=== PATIENT | female | born 1995 | race Caucasian/White ===

== ENCOUNTER 2022-06-13 07:19 | Outpatient (REF) | payer MEDICAID, SELFPAY | END 2022-06-13 07:20 | disposition home or self-care (01) | LOC: HO.HOSX 07:19 | PROVIDERS: Visit Provider Physician Assistant | DX: Z13.89 Encounter for screening for other disorder (principal) ==

== ENCOUNTER 2023-07-01 18:17 | Outpatient (REF) | payer MEDICAID, SELFPAY | END 2023-07-01 18:18 | disposition home or self-care (01) | LOC: HO.HHCL 18:17 | PROVIDERS: Visit Provider Emergency Medicine | DX: J02.9 Acute pharyngitis, unspecified (principal) | CPT/HCPCS: 87070; 87147 ==

== ENCOUNTER 2023-08-24 16:23 | Outpatient (REF) | payer MEDICAID, SELFPAY ==
[2023-08-25 12:24] LABS: HIV AB/AG Nonreactive (Nonreactive); HIV Num 1 0.06 S/CO (0.00-0.99); ~HepC Num1 0.07 S/CO (0.00-0.79); ~Hepatitis C Antibody Nonreactive (Nonreactive)
[2023-08-25 14:19] LABS: CT PCR NOT DETECTED (Not Detect.); NG PCR NOT DETECTED (Not Detect.)
[2023-08-27 13:09] LABS: RPR Rapid Plasma Reagin NON-REACTIVE (NON-REACTIVE)
== END 2023-08-24 16:24 | disposition home or self-care (01) ==
LOC: HO.CHCLDS 16:23
PROVIDERS: Visit Provider Internal Medicine
DX: N30.01 Acute cystitis with hematuria (principal); Z11.3 Encounter for screening for infections with a predominantly sexual mode of transmission
CPT/HCPCS: 0353U; 86592; 86803; 87086; 87088; 87186; 87389

== ENCOUNTER 2023-09-22 11:13 | Outpatient (REF) | payer MEDICAID, SELFPAY ==
[2023-09-22 17:17] LABS: CT PCR NOT DETECTED (Not Detect.); NG PCR NOT DETECTED (Not Detect.)
== END 2023-09-22 11:14 | disposition home or self-care (01) ==
LOC: HO.CHCLNP 11:13
PROVIDERS: Visit Provider Advanced Practice Midwife
DX: Z11.3 Encounter for screening for infections with a predominantly sexual mode of transmission (principal); N93.9 Abnormal uterine and vaginal bleeding, unspecified
CPT/HCPCS: 0353U

== ENCOUNTER 2023-10-06 12:00 | Outpatient (REF) | payer MEDICAID, SELFPAY ==
[2023-10-06 19:02] LABS: CT PCR NOT DETECTED (Not Detect.); NG PCR NOT DETECTED (Not Detect.)
[2023-10-07 08:53] LABS: ~HepC Num1 0.12 S/CO (0.00-0.79); ~Hepatitis C Antibody Nonreactive (Nonreactive)
[2023-10-07 15:49] LABS: RPR Rapid Plasma Reagin NON-REACTIVE (NON-REACTIVE)
[2023-10-09 16:39] LABS: HIV RNA PCR Qn Copies Not Detected Copies/mL; HIV RNA PCR Qn Log Copies Not Detected Log cps/mL
== END 2023-10-06 12:01 | disposition home or self-care (01) ==
LOC: HO.CHCLDS 12:00
PROVIDERS: Visit Provider Student in an Organized Health Care Education/Training Program
DX: Z11.3 Encounter for screening for infections with a predominantly sexual mode of transmission (principal); Z11.59 Encounter for screening for other viral diseases
CPT/HCPCS: 0353U; 36415; 86592; 86803; 87536; 87900

== ENCOUNTER 2023-10-28 16:10 | Outpatient (REF) | payer MEDICAID, SELFPAY ==
[2023-11-03 15:23] LABS: Immunoglobulin M 227 mg/dL (50-300)
== END 2023-10-28 16:11 | disposition home or self-care (01) ==
LOC: HO.CHCLDS 16:10
PROVIDERS: Visit Provider Family Medicine
DX: A64 Unspecified sexually transmitted disease (principal)
CPT/HCPCS: 0353U; 36415; 81513; 82784; 86695; 86696; 86780; 86803; 87086; 87340; 87389

== ENCOUNTER 2023-12-02 13:03 | Outpatient (REF) | payer MEDICAID, SELFPAY ==
[2023-12-02 14:50] LABS: Appearance Urine Turbid; Color Urine Dark Yellow; Glucose Urine UA Negative (Negative); Leukocyte Esterase Urine Negative (Negative); Nitrite Urine Negative (Negative); Specific Gravity - Urine >= 1.030 (1.005-1.025); Urine Blood Negative (Negative); Urine Ketones Trace mg/dL (Negative); Urine Protein Trace mg/dL (Neg-Trace)
[2023-12-02 14:56] LABS: Bacteria Urine 1+ (None Seen); RBC Urine 0-2 /HPF (0-2); WBC Urine 0-5 /HPF (0-5)
[2023-12-02 16:31] LABS: CT PCR NOT DETECTED (Not Detect.); NG PCR NOT DETECTED (Not Detect.)
[2023-12-03 23:04] LABS: C. trachomatis RNA TMA NOT DETECTED (NOT DETECTED); N. gonorrhoeae RNA TMA NOT DETECTED (NOT DETECTED)
== END 2023-12-02 13:04 | disposition home or self-care (01) ==
LOC: HO.CHCLNP 13:03
PROVIDERS: Visit Provider Internal Medicine
DX: R30.0 Dysuria (principal); N76.0 Acute vaginitis
CPT/HCPCS: 0353U; 81001; 81513; 87491; 87591

== ENCOUNTER 2023-12-24 09:43 | Outpatient (REF) | payer MEDICAID, SELFPAY ==
[2023-12-25 04:18] LABS: Syphilis Screen Nonreactive (Nonreactive)
[2023-12-25 04:36] LABS: HBS Num1 36.34 mIU/mL (0-7.99); HIV AB/AG Nonreactive (Nonreactive); HIV Num 1 0.07 S/CO (0.00-0.99); Hepatitis B Core Antibody Nonreactive (Nonreactive); Hepatitis B Surface Antigen Negative (Negative); ~HepC Num1 0.16 S/CO (0.00-0.79); ~Hepatitis B Surface Antibody REACTIVE (Nonreactive); ~Hepatitis C Antibody Nonreactive (Nonreactive)
[2023-12-25 04:57] LABS: Hepatitis A Antibody IgM 0.28 Index (0-0.79); ~Hepatitis A Antibody IgM Nonreactive (Nonreactive)
[2023-12-26 14:42] LABS: C. trachomatis RNA TMA NOT DETECTED (NOT DETECTED); Candida glabrata RNA NOT DETECTED (NOT DETECTED); Candida species RNA NOT DETECTED (NOT DETECTED); N. gonorrhoeae RNA TMA NOT DETECTED (NOT DETECTED); Trichomonas vaginalis RNA NOT DETECTED (NOT DETECTED)
[2023-12-28 08:18] LABS: RPR Rapid Plasma Reagin NON-REACTIVE (NON-REACTIVE)
== END 2023-12-24 09:44 | disposition home or self-care (01) ==
LOC: HO.CHCLDS 09:43
PROVIDERS: Internal Medicine; Visit Provider Pediatrics
DX: N76.0 Acute vaginitis (principal); A64 Unspecified sexually transmitted disease
CPT/HCPCS: 36415; 81513; 86592; 86704; 86706; 86709; 86780; 86803; 87340; 87389; 87481; 87491; 87591; 87661

== ENCOUNTER 2024-01-07 17:34 | Outpatient (REF) | payer MEDICAID, SELFPAY ==
[2024-01-08 19:53] LABS: C. trachomatis RNA TMA NOT DETECTED (NOT DETECTED); Candida glabrata RNA NOT DETECTED (NOT DETECTED); Candida species RNA NOT DETECTED (NOT DETECTED); N. gonorrhoeae RNA TMA NOT DETECTED (NOT DETECTED); Trichomonas vaginalis RNA NOT DETECTED (NOT DETECTED)
== END 2024-01-07 17:35 | disposition home or self-care (01) ==
LOC: HO.HHCLNP 17:34
PROVIDERS: Visit Provider Pediatrics
DX: R30.9 Painful micturition, unspecified (principal)
CPT/HCPCS: 36415; 81513; 87481; 87491; 87591; 87661

== ENCOUNTER 2024-03-08 19:11 | Outpatient (REF) | payer MEDICAID, SELFPAY | END 2024-03-08 19:12 | disposition home or self-care (01) | LOC: HO.HHCLNP 19:11 | PROVIDERS: Visit Provider Emergency Medicine | DX: R30.0 Dysuria (principal) | CPT/HCPCS: 87086 ==

== ENCOUNTER 2024-06-24 15:17 | Outpatient (REF) | payer MEDICAID, SELFPAY | END 2024-06-24 15:18 | disposition home or self-care (01) | LOC: HO.CHCLDS 15:17 | PROVIDERS: Visit Provider Internal Medicine | DX: R05.9 Cough, unspecified (principal) | CPT/HCPCS: 36415; 86615 ==

== ENCOUNTER 2024-07-26 12:58 | Outpatient (REF) | payer MEDICAID, SELFPAY ==
[2024-07-26 14:53] LABS: Bacterial Vaginosis PCR NEGATIVE (Negative); Candida Group PCR DETECTED (Not Detect); Candida glab krusei PCR NOT DETECTED (Not Detect); Trichomonas vaginalis PCR NOT DETECTED (Not Detect)
[2024-07-26 15:19] LABS: CT PCR NOT DETECTED (Not Detect.); NG PCR NOT DETECTED (Not Detect.)
== END 2024-07-26 12:59 | disposition home or self-care (01) ==
LOC: HO.HHCLNP 12:58
PROVIDERS: Visit Provider Nurse Practitioner Primary Care
DX: N89.8 Other specified noninflammatory disorders of vagina (principal)
CPT/HCPCS: 0352U; 87491; 87591

== ENCOUNTER 2024-08-25 13:20 | Outpatient (REF) | payer MEDICAID, SELFPAY ==
[2024-08-25 18:13] LABS: Bacterial Vaginosis PCR POSITIVE (Negative); Candida Group PCR DETECTED (Not Detect); Candida glab krusei PCR NOT DETECTED (Not Detect); Trichomonas vaginalis PCR NOT DETECTED (Not Detect)
[2024-08-26 03:44] LABS: CT PCR NOT DETECTED (Not Detect.); NG PCR NOT DETECTED (Not Detect.)
== END 2024-08-25 13:21 | disposition home or self-care (01) ==
LOC: HO.HHCLNP 13:20
PROVIDERS: Visit Provider Student in an Organized Health Care Education/Training Program
DX: N89.8 Other specified noninflammatory disorders of vagina (principal)
CPT/HCPCS: 0352U; 87491; 87591

== ENCOUNTER 2025-04-05 14:26 | Outpatient (REF) | payer MEDICAID, SELFPAY ==
--- OUTSIDE RECORDS SUMMARY | 2025-04-05 16:35 | XMS_ITS | Data Portability ---
Author Organization [place] - [facility], [address] Address [address] [place] [address] Assessment No assessment recorded. Plan of Treatment Reminders Order Date Submit Date Provider Last Modified By Organization Details Last Modified Time Details Appointments None record ed. Lab None record ed. Referral None record ed. Procedures None record ed. Surgeries None record ed. Imaging None record ed. Medication Orders None record ed. Patient TargetsNo targets recorded. Patient InstructionsNo instructions recorded. Reason for Referral None Reported. Procedures Surgical History Date Name Laterality Status Provider Name and Address Organization Details Recorded Time OC-DOT PHYSICAL completed Cassidy Collins PA - [facility] 04/15/2024 12:17:01 Imaging Results None recorded. Procedure Notes None recorded. Medical Equipment None Reported. Vitals Date Recorded Body height Provider Name an d Address Organization Details Last Updated DateTime 04/15/2024 162.56 cm Cassidy Collins PA - [facility] 0 04/15/2024 12:17:16 Social History None recorded. Functional Status None recorded. Mental Status None recorded. Family History Nothing Reported. Medical History No medical history recorded. Gynecological HistoryNo gynecological history recorded. Obstetrics History GPAL:G 0 P 0 0 0 0 Past Encounters Encounter ID Performer Location Encounter Start Date Encounter Closed Date Diagnosis/Indication Diagnosis SNOMED-CT Code Diagnosis ICD10 Code Diagnosis Note [id number] [facility] [address] [place] [address] 03/01/2022 10:42:45 03/01/2022 11:28:16 [id number] [address] [facility] [address] [place] [address] 03/06/2020 12:53:57 03/06/2020 14:36:45 [id number] [facility] [address] [facility] [address] [place], [place] [address] 03/03/2020 13:24:50 03/03/2020 13:52:55 [id number] UMBERTO SANTOS [facility] [address] [facility] kary, [place] [address] 04/15/2024 11:40:49 04/15/2024 12:25:27 Insurance Processor license medical examination [id number] Z02.4 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 Denies any RX. Refer to scanned DOT physical exam forms and DOT certificat e for exam findings. Physical examination [phone] Z02.4 Health Concerns Section Related Observation LastModified by Organization Detai ls LastModified Time None Recorded Concern Status LastModified by Organization Details LastModified Time None Recorded Advance Directives Directive None Recorded Payers Insurance Date Sequence Insurance Name Policy Number Policy Stafford Covered Member ID Stafford Member ID Guarantor Name 04/15/2024 PROMPT PAY Am imtiaz Roberts OBGyn Episode No OBEpisode recorded.
[2025-04-05 16:50] LABS: CT PCR NOT DETECTED (Not Detect.); NG PCR NOT DETECTED (Not Detect.)
== END 2025-04-05 14:27 | disposition home or self-care (01) ==
LOC: HO.HHCLNP 14:26
PROVIDERS: Visit Provider Family Medicine
DX: N93.9 Abnormal uterine and vaginal bleeding, unspecified (principal)
CPT/HCPCS: 87491; 87591

== ENCOUNTER 2025-05-10 18:12 | Outpatient (REF) | payer MEDICAID, SELFPAY ==
[2025-05-10 20:49] LABS: Bacterial Vaginosis PCR POSITIVE (Negative); Candida Group PCR NOT DETECTED (Not Detect); Candida glab krusei PCR NOT DETECTED (Not Detect); Trichomonas vaginalis PCR NOT DETECTED (Not Detect)
[2025-05-10 23:23] LABS: CT PCR Urine NOT DETECTED (Not Detect.); NG PCR Urine NOT DETECTED (Not Detect.)
== END 2025-05-10 18:13 | disposition home or self-care (01) ==
LOC: HO.HHCLNP 18:12
PROVIDERS: Visit Provider Advanced Practice Midwife
DX: Z11.3 Encounter for screening for infections with a predominantly sexual mode of transmission (principal); N89.8 Other specified noninflammatory disorders of vagina
CPT/HCPCS: 36415; 81515; 87491; 87591

== ENCOUNTER 2025-06-06 14:44 | Outpatient (REF) | payer MEDICAID, SELFPAY ==
--- OUTSIDE RECORDS SUMMARY | 2025-06-06 15:37 | XMS_ITS | Encounter Summary ---
Author Organization [employer] Address [address] [facility] 7t [place] [address] Care Team Providers Care Clinical Laboratory Scientist Name Role Phone Margie Hernandez MD Primary Care Provider [phone] Reason for Visit * Reason Onset Date Comments Nurse Triage 10/28/2023 Encounter Details Date Type Department Care Team ([facility] st Contact Info) Description 10/28/2023 Telephone [facility] [address] [place] [address] Margie Hernandez MD [address] [place] [address] Nurse Triage Social History Tobacco Use Types Packs/Day Years Used Date Smoking Tobacco: Never Smokeless Tobacco: Never Alcohol Use Standard Drinks/Week Comments Not Currently 0 (1 standard drink = 0.6 oz pur e alcohol) Comments No Sex and Gender Information Value Date Recorded Sex Assigned at Female 08/25/2022 10:30 AM EDT Legal Sex Female 10:30 AM EDT Gender Identity Female 08/25/2022 10:30 AM EDT Sexual Orientation Don't know 08/25/2022 10 :30 AM EDT documented as of this encounter Miscellaneous Notes * Telephone Encounter - Anastasia Abebe RN - 10/28/2023 10:13 AM EST Triage call Pt reports urinary symptoms for a week now. Pt reports having unprotected sex and then then urinary symptoms of burning and irritation occurred and Pt is concerned about both UTI and /or STD. Pt denies bad odor, frequency with urination and is not drinking enough liquids due to burning with urination. Pt is advised to try to increase liquid intake and Pt agrees. Pt agrees with disposition. Apt today in [facility] @ 340pm . Insurance is verified as active prior to booking. Protocol Used: Urinary Symptoms (Adult) Protocol-Based Disposition: See in Office or Video Visit Today or Tomorrow Video visit not offered Positive Triage Question: * Patient wants to be seen * All higher-acuity triage questions were negative Care Advice Discussed: * Reasons To Call Back - Fever occurs - Pain or burning with urination - Unable to urinate and bladder feels full - You become worse * Telephone Encounter - Steve Mcdowell - 10/28/2023 9:46 AM EST Symptom: Urine Symptoms Outcome: Schedule a same-day appointment or talk to a nurse or provider today Reason: Caller denied all higher acuity questions The caller accepted this outcome documented in this encounter Plan of Treatment Not on file documented as of this encounter Visit Diagnoses Not on filedocumented in this encounter Care Teams Clinical Laboratory Scientist Relationship Specialty Start Date End Date Margie Hernandez MD [address] [place] [address] PCP - General Family Medicine 05/07/16 documented as of this encounter
[2025-06-06 17:42] LABS: Appearance Urine Clear; Glucose Urine UA Negative (Negative); PH 7.0 (5.0-9.0); Specific Gravity - Urine 1.025 (1.005-1.025); UMIC TRIGGER UACC YES
== END 2025-06-06 14:45 | disposition home or self-care (01) ==
LOC: HO.CHCLDS 14:44
PROVIDERS: Visit Provider Internal Medicine
DX: R30.0 Dysuria (principal)
CPT/HCPCS: 81001

== ENCOUNTER 2025-09-26 16:42 | Outpatient (REF) | payer MEDICAID, SELFPAY ==
--- OUTSIDE RECORDS SUMMARY | 2025-09-26 11:15 | XMS_ITS | Encounter Summary ---
Author Organization [employer] Address [address] [facility] [address] 7t [place] [address] Care Team Providers Care Landscape Specialist Name Role Phone Nerissa Bethea SMILEY Primary Care Provider [phone] Encounter Details Date Type Department Care Team ([facility] st Contact Info) Description 09/26/2025 11:15 AM EST Office Visit [facility] [address] [place], [place] [phone] Felisa Stewart ANP [address] [place], [place] [phone] Disturbance, sensation, skin (Primary Dx); Vaginal discharge; Dysuria Social History Tobacco Use Types Packs/Day Years Used Date Smoking Tobacco: Never Smokeless Tobacco: Never Tobacco Cessation:Counseling Given: Not Answered Alcohol Use Standard Drinks/Week Comments Not Currently 0 (1 standard drink = 0.6 oz pur e alcohol) Depression Answer Date Recorded Patient Health Questionnaire-9 Score 0 12/24/2023 Patient Health Questionnaire-9 Score 0 12/24/2023 Last PHQ-9: Questionnaire Data Not on file 0 12/24/2023 Housing Stability Answer Date Recorded What is your housing situation today? I have merna boone 12/17/[address] you li ve. Do you have problems with any of the following? None of the above 12/17/2023 Food Insecurity Answer Date Recorded Within the past 12 months, y ou worried that your food would run out before you got money to buy more: Never True 12/17/2023 Within the past 12 months,th e food you bought just didn't last and you didn't have enough money to get more: Never True Transportation Answer Date Recorded In the past 12 months, has l ack of transportation kept you from medical appts, meetings, work or from getting things needed for daily living? No 12/17/2023 Utilities Answer Date Recorded In the past 12 months, has t he electric, gas, oil or water company threatened to shut off services in your home? No 12/17/2023 Depression Answer Date Recorded Patient Health Questionnaire-2 Score 0 12/24/2023 Comments No Sex and Gender Information Value Date Recorded Sex Assigned at Female 08/25/2022 10:30 AM EDT Legal Sex Female 10:30 AM EDT Gender Identity Female 08/25/2022 10:30 AM EDT Sexual Orientation Don't know 08/25/2022 10 :30 AM EDT documented as of this encounter Last Filed Vital Signs Vital Sign Reading Time Taken Comments Blood Pressure 138/96 09/26/2025 11:38 AM EST Pulse 73 09/26/2025 11:09 AM EST Temperature 36.7 C (98 F) 09/26/2025 11:09 AM EST Respiratory Rate 11 09/26/2025 11:09 AM EST Oxygen Saturation 97% 09/26/2025 11:09 AM EST Inhaled Oxygen Concentration - - Weight 81.2 kg (179 lb) 09/26/2025 11:09 AM EST Height 165.1 cm (5' 5 ) 09/26/2025 11:09 AM EST Body Mass Index 29.79 09/26/2025 11:09 AM EST documented in this encounter Progress Notes * DIMITRY Perez - 09/26/2025 11:15 AM EST Subjective Ap Roberts, 29 year old, here today for sick visit LLE numbness in anterior israel and vaginal discharge Seen for same re: LLE at [facility] 09/12/25 See note same DOS Pap due next mo Recurrent Vaginal Infections - Recurring episodes of yeast infections since April 2025, with 3 or 4 episodes reported - Symptoms include intense itching, rawness, discomfort, and white clumpy vaginal discharge; one episode with yellowish discharge - Symptoms often begin before menses and may persist after - Episodes sometimes transition from yeast infection to bacterial vaginosis (BV) and cycle back andforth - Burning sensation with urination noted prior to onset of recurrent infections - No new sexual partners; denies other partners besides current partner Numbness and Tingling in Leg - Persistent tingling sensation in leg, described as abnormal compared to usual sensation, LLE anterior israel (pt points) Menstrual Irregularity - Last menstrual period was approximately one week late, otherwise typically regular Recent STI Testing - STI testing NG/CT performed approximately 2 weeks prior to this visit, negative - Syphilis and HIV testing completed in August 2025 via [facility], negative Reports BP elevated she thinks d/t just being in argument w/ BF Reports safe at home Review of Systems Constitutional: Negative for chills and fever. HENT: Negative for sore throat. Respiratory: Negative for cough and shortness of breath. Cardiovascular: Negative for chest pain. Gastrointestinal: Negative for constipation and diarrhea. Endocrine: Negative for polydipsia, polyphagia and polyuria. Genitourinary: Positive for dysuria and vaginal discharge. Negative for urgency. Neurological: Positive for numbness. Negative for weakness. Objective Blood pressure (!) 138/96, pulse 73, temperature 98 ??F (36.7 ??C), temperature source Temporal, resp. rate 11, height 5' 5 (1.651 m), weight 179 lb (81.2 kg), SpO2 97%. Blood pressure improved but still elevated on repeat Physical Exam Constitutional: General: She is not in acute distress. Appearance: Normal appearance. She is not ill-appearing. HENT: Head: Normocephalic and atraumatic. Eyes: General: No scleral icterus. Extraocular Movements: Extraocular movements intact. Pupils: Pupils are equal, round, and reactive to light. Cardiovascular: Rate and Rhythm: Normal rate and regular rhythm. Pulmonary: Effort: Pulmonary effort is normal. No accessory muscle usage or respiratory distress. Neurological: Mental Status: She is alert and oriented to person, place, and time. Psychiatric: Mood and Affect: Mood normal. Behavior: Behavior normal. Diagnoses and all orders for this visit: Disturbance, sensation, skin - Added serum vitamin B12 level to existing lab orders for evaluation of numbness/tingling. Directed to complete all pending labs (thyroid function tests, complete blood count, PT/INR from March) along with today???s B12; instructed to ensure the lab performs all four tests. - Vitamin B12; Future Vaginal discharge - Ordered vaginal swab testing for bacterial vaginosis and yeast; instructed to self-collect vaginal swab as demonstrated. Ordered testing for Mycoplasma and Ureaplasma. Determined that repeat gonorrhea/chlamydia testing is not indicated today; noted prior HIV and syphilis testing completed in August and not required to repeat. Trace leuks on UA - Bacterial Vaginosis Panel - Mycoplasma/Ureaplasma Panel; Future - POC UA - A1c d/t repeated vaginal infections Elevated BP w/o diagnosis of hypertension Improved on repeat though remains above goal < 120/80 BP Readings from Last 4 Encounters: 09/26/25 (!) 138/96 09/12/25 116/75 06/06/25 125/80 05/10/25 (!) 120/90 follow-up w/ PCP Dysuria Trace leuks Testing as above - POCT Urinalysis Follow-up: Schedule w/ PCP for pap and blood pressure follow-up This note was drafted using Ambient (AI) technology. The patient/patient's guardian has been informed and has consented to the use of this technology: Yes documented in this encounter Plan of Treatment Scheduled Orders Name Type Priority Associated Diagnoses Orde r Schedule Vitamin B12 Lab Routine Disturbance, sensation, skin Expected: 09/26/2025 (Approximate), Expires: 09/26/2026 Bacterial Vaginosis Panel Microbiology Routine Vaginal discharge Ordered: 09/26/2025 Mycoplasma/Ureaplasma Panel Microbiology Routine Vaginal discharge Expected: 09/26/2025 (Approximate), Expires: 09/26/2026 Hemoglobin A1c Lab Routine Vaginal discharge Expected: 09/26/2025 (Approximate), Expires: 09/26/2026 documented as of this encounter Procedures Procedure Name Priority Date/Time Associated Diagnosis Comments POCT URINALYSIS DIPSTICK Routine 09/26/2025 12:00 PM EST Dysuria documented in this encounter Results * POCT Urinalysis (09/26/2025 12:00 PM EST) Color, UA Yellow Clarity, UA Clear Glucose, UA Negative Bilirubin, UA Negative Ketones, UA Negative Spec Grav, UA 1.025 Blood, UA Negative Negative, None Detected pH, UA 7.0 Protein, UA Trace Urobilinogen, UA 0.2 Leukocytes, UA Trace Negative, Rare, Trace, 1+ (17), 2+ (35), 3+ (70), Trace (15) Nitrite, UA Negative Negative, None Detected QC Media Lot # [id number] Lot# Expiration Date Urine (Urine, Random) 09/26/2025 12:00 PM EST Felisa [facility] POINT OF CARE TEST ENTER/EDIT OR DERABLES Final Result documented in this encounter Visit Diagnoses Diagnosis Disturbance, sensation, skin- Primary Vaginal discharge Leukorrhea, not specified as infective Dysuria documented in this encounter Additional Health Concerns Assessment Noted Time PHQ-9 Depression Total Score: 0 12/24/19 24 9:18 AM EST documented as of this encounter Care Teams Landscape Specialist Relationship Specialty Start Date End Date Nerissa Bethea CNP [address] [place] [address] PCP - General Family Medicine 08/24/25 documented as of this encounter
--- OUTSIDE RECORDS SUMMARY | 2025-09-26 17:22 | XMS_ITS | Data Portability ---
Author Organization [place] - [facility], [address] Address [address] [place] [address] Assessment No assessment recorded. Plan of Treatment [...] Diagnosis SNOMED-CT Code Diagnosis ICD10 Code Diagnosis IMO Codes Diagnosis Note [id number] [address] [place] [address] 03/01/2022 10:42:45 03/01/2022 11:28:16 [id number] [address] [facility] [place] [address] 03/06/2020 12:53:57 03/06/2020 14:36:45 [id number] [facility] [address] [facility] [place] [address] 03/03/2020 13:24:50 03/03/2020 13:52:55 [id number] [facility] [address] [facility] [place] [address] 04/15/2024 11:40:49 04/15/2024 12:25:27 Senior Firewall Engineer license medical examination [id number] Z02.4 The patient was given a 2 [...]
--- OUTSIDE RECORDS SUMMARY | 2025-09-26 17:23 | XMS_ITS | Encounter Summary ---
Author Organization [employer] Address [address] [facility] 7t [place] [address] Care Team Providers Care National Van Owner Operator Name Role Phone Nerissa Bethea SMILEY Primary Care Provider [phone] Encounter Details Date Type Department Care Team (Latest Contact Info) Description 09/26/2025 Travel Social History Tobacco Use Types Packs/Day Years [...] AM EDT documented as of this encounter Plan of Treatment Not on file documented as of this encounter Visit Diagnoses Not on filedocumented in this encounter Additional Health Concerns Assessment Noted Time PHQ-9 Depression Total Score: 0 12/24/19 24 9:18 AM EST documented as of this encounter Care Teams National Van Owner Operator Relationship Specialty Start Date End Date Nerissa Bethea CNP [address] [place] [address] PCP - General Family Medicine 08/24/25 documented as of this encounter
--- OUTSIDE RECORDS SUMMARY | 2025-09-26 17:23 | XMS_ITS | Encounter Summary ---
Author Organization [employer] Address [address] [facility] [address] 7[address] [place] [address] Care Team Providers Care Cafe Lead Name Role Phone Margie Hernandez MD Primary Care Provider [phone] Nerissa Bethea CNP Primary Care Provider [phone] Encounter Details Date Type Department Care Team ([facility] st Contact Info) Description 12/07/2023 Orders Only [facility] [address] [place], [place] [phone] Greer Tariq MD [address] [place] [address] Bacterial vaginosis (Primary Dx) Social History Tobacco Use Types Packs/Day Years [...] documented as of this encounter Visit Diagnoses Diagnosis Bacterial vaginosis- Primary Unspecified vaginitis and vulvovaginitis documented in this encounter Care Teams Cafe Lead Relationship Specialty Start Date End Date Margie Hernandez MD [address] [place] [address] PCP - General Family Medicine 05/07/16 08/23/25 Nerissa Bethea CNP [address] [place] [address] PCP - General Family Medicine 08/24/25 documented as of this encounter
--- OUTSIDE RECORDS SUMMARY | 2025-09-26 17:23 | XMS_ITS | Encounter Summary ---
Author Organization [employer] Address [address] [address] 7[address] [place] [address] Care Team Providers Care Wood Pattern Maker Name Role Phone Margie Hernanedz MD Primary Care Provider [phone] Nerissa Bethea CNP Primary Care Provider [phone] Reason for Visit * Reason Onset Date Comments Appointment Request 09/28/2023 Encounter Details Date Type Department Care Team ([facility] st Contact Info) Description 09/28/2023 Telephone [facility] [address] [place] [address] Margie Hernandez MD [address] [place] [address] Appointment Request Social History Tobacco Use Types Packs/Day Years [...] encounter Miscellaneous Notes * Telephone Encounter - Frances Horan RN - 09/30/2023 10:28 AM EST Noted thank you. * Telephone Encounter - Margie Hernandez MD - 09/30/2023 10:26 AM EST Labs ordered * Telephone Encounter - Frances Horan RN - 09/29/2023 11:45 AM EST Placed call to pt and informed of lab orders placed and pt can come to lab at pt convenience. Pt states she would like to retest for urine chlamydia and Gonorrhea as pt had recent exposure on 09/26/23. Pt advised to wait a couple of weeks post exposure as if pt tests too soon, may result in false negative. Pt advised in safe sex practices and symptoms to watch out for. Pt agrees with plan and requested lab order for urine GC/Chlamydia as well. * Telephone Encounter - Margie Hernandez MD - 09/29/2023 10:25 AM EST ordered * Telephone Encounter - Frances Horan RN - 09/28/2023 2:36 PM EST Pt just had lab for Chlamydia and Gonorrhea done on 09/22/23, please advise if lab order can be placed for other STI testing. * Telephone Encounter - Steve Mcdowell - 09/28/2023 1:32 PM EST Tc from patient requesting a appt for STD states is currently has no symptoms and would like to geta follow up testing . documented in this encounter Plan of Treatment Not on file documented as of this encounter Visit Diagnoses Not on filedocumented in this encounter Care Teams Wood Pattern Maker Relationship Specialty Start Date End Date Margie Hernandez MD [address] [place] [address] PCP - General Family Medicine 05/07/16 08/23/25 Nerissa Bethea CNP [address] [place] [address] PCP - General Family Medicine 08/24/25 documented as of this encounter
--- OUTSIDE RECORDS SUMMARY | 2025-09-26 17:23 | XMS_ITS | Encounter Summary ---
Author Organization [employer] Address [address] [facility] [address] 7t [place] [address] Care Team Providers Care Nursery Worker Name Role Phone Margie Hernandez MD Primary Care Provider [phone] Nerissa Bethea CNP Primary Care Provider [phone] Reason for Visit * Reason Onset Date Comments Nurse Triage 10/28/2023 Encounter Details Date Type Department Care Team ([facility] st Contact Info) Description 10/28/2023 Telephone [facility] [address] [place] [address] Margie Hernandez MD [address] [place] [address] Nurse Triage Social History Tobacco Use Types [...] Pt agrees with disposition. Apt today [facility] @ 340pm . Insurance is verified [...] on filedocumented in this encounter Care Teams Nursery Worker Relationship Specialty Start Date End Date Margie Hernandez MD [address] [place] [address] PCP - General Family Medicine 05/07/16 08/23/25 Nerissa Bethea CNP [address] [place] [address] PCP - General Family Medicine 08/24/25 documented as of this encounter
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
[2025-09-30 09:34] LABS: Mycoplasma hominis PCR Detected (Not Detected)
== END 2025-09-26 16:43 | disposition home or self-care (01) ==
LOC: HO.HHCLNP 16:42
PROVIDERS: Visit Provider Nurse Practitioner Primary Care
DX: N89.8 Other specified noninflammatory disorders of vagina (principal); R20.9 Unspecified disturbances of skin sensation
CPT/HCPCS: 81515; 87563; 87798